=== PATIENT | female | born 1940 | race Caucasian/White ===

== ENCOUNTER → 2016-11-14 | Outpatient (CLI) | payer MEDICARE, BC ==
[~2016-11-14] MED LIST: BLOOD PRESSURE PILL; COUMADIN PO; COUMADIN1 MG PO; COUMADIN4 MG; GLUCOPHAGE500 MG PO; HYDROCODON-ACE1 EAC7; IMDUR-ER30 M1 PO; IMDUR-ER60 M2 PO; K-DUR20 ME1 DOB; KCL PO; LASIX20 MG; LASIX80 MG PO; LEVOTHYROXINE100 MCG PO; LOW DOSE ASPIRI81 M1 PO; MECLIZINE HCL25 M1 PO; METOPROLOL SUCC25 MG PO; METOPROLOL SUCC50 MG; SYNTHROID75 MCG; ZOFRAN PO
--- NOTE | ~2016-11-14 | CT71 ---
[facility]. [facility] A Service of [facility] & [facility] RADIOLOGY TEXT RESULTS PATIENT: LORRIE CALDERA LOCATION: [facility] : 38 UNIT #: [id number] AGE: [address]: LEMUEL REILLY MD SEX: F ORDER DR: [id number] [address] [address] [id number] O MR#: [id number] #: [id number] NAME: LORRIE CALDERA : 1940 SEX: F STUDY DATE/TIME: 11/14/2016 8:28 UNIT: [facility] ROOM: STUDY DESCRIPTION: CT Head Wo Contrast Attending Physician: Lemuel Reilly M.D. Referring Physician: Lemuel Reilly M.D. Ordering Physician: Lemuel Reilly M.D. Primary Care Physician: Lemuel Reilly M.D. MEDICAL IMAGING REPORT This report is preliminary unless electronic signature is present. EXAM CT head, 11/14/2016. HISTORY Ocular migraine. Migraine worsening for [address] head performed skull base through vertex without intravenous contrast. This CT exam was performed with one or more of the following radiation dose reduction techniques: automatic exposure control, adjustment of mA and/or kV according to patient size, and iterative reconstruction. COMPARISON No comparisons. FINDINGS Some images degraded by streak/motion artifact. Brainstem unremarkable. Cerebellum and cerebral hemispheres show preservation of james matter-white matter differentiation. There is an area of encephalomalacic change in the posterolateral left frontal lobe likely reflecting remote vascular insult. There is a 7 mm hypodense focus in the left putamen inferiorly which could represent dilated perivascular space or chronic lacunar infarct. There is no compelling evidence of acute cortical ischemia. There is an ill-defined 5-8 mm focus hyperdensities seen on a single image in the right parietal lobe white matter in the periventricular white matter. No mass effect. No surrounding edema. Etiology unclear. Products of hemorrhage felt unlikely, though not excluded. This may represent unusual chronic parenchymal calcification. In the absence of prior studies for comparison, further assessment with MRI is strongly recommended. No other suspicious parenchymal hyperdensities are seen. There are STS. [facility] A Service of [facility] & [facility] RADIOLOGY TEXT RESULTS PATIENT: LORRIE CALDERA LOCATION: [facility] : 38 UNIT #: [id number] AGE: [address]: LEMUEL REILLY MD SEX: F ORDER DR: typical appearing basal ganglia calcifications. The midline structures are nondisplaced. The ventricles, cisterns, and sulci show mild generalized enlargement consistent with mild generalized atrophy. No intra or extraaxial mass effect or abnormal fluid collection. There are cavernous carotid and distal vertebral arterial calcifications. The intraorbital soft tissues are unremarkable. Mucosal thickening ethmoid air cells and left maxillary sinus. No fracture. IMPRESSION 1. In the right parietal lobe periventricular white matter seen on only 1 image, there is a 5-8 mm focus of increased density. No mass effect or surrounding vasogenic edema. Etiology unclear. Given overall appearance, focus of acute hemorrhage is felt less likely, though not strictly excluded. This could be an unusual parenchymal calcification. I have no prior studies for comparison. In absence of prior studies clarifying this finding, assessment with MRI strongly recommended. Findings discussed directly with Dr. Reilly at 1300 hours 11/14/2016. 2. Area of encephalomalacic change posterior-superior left frontal lobe likely reflecting remote vascular insult. 3. Mild generalized atrophy. 4. 7 mm dilated perivascular space versus chronic lacunar infarct left putamen. 5. Extensive cavernous carotid and distal vertebral arterial calcifications. 6. Mild atrophy. 7. Mild mucosal thickening ethmoid air cells and left maxillary sinus. Dictated by... Yefri Simpson M.D. THIS IS AN ELECTRONICALLY VERIFIED REPORT Yefri Simpson M.D. at 11/15/2016 7:14 PM TRINA/annie TD: 11/14/2016 13:59 JOB #: [id number] MEDICAL IMAGING REPORT Page 1 of 1
== END | disposition home or self-care (01) ==
LOC: SCT 08:07
DX: G43.109 Migraine with aura, not intractable, without status migrainosus (principal); G93.89 Other specified disorders of brain; G31.9 Degenerative disease of nervous system, unspecified; I67.2 Cerebral atherosclerosis
CPT/HCPCS: 70450

== ENCOUNTER 2017-02-18 17:29 | Emergency (ER) | payer MEDICARE, BC ==
--- NOTE | ~2017-02-18 | EKG ---
PATIENT: LORRIE CALDERA UNIT #: [id number] Ventricular Rate: 60 BPM Atrial Rate: 71 BPM QRS Duration: 162 ms Q-T Interval: 464 ms QTC Calculation(Bezet): 464 ms Calculated R [place]: -66 degrees Calculated T [place]: 95 degrees Diagnosis Line: Electronic ventricular pacemaker Diagnosis Line: When compared with ECG of 26-JAN-2015 18:13, Diagnosis Line: Vent. rate has decreased BY 4 BPM Diagnosis Line: Confirmed by DEVIN ELY MD ([id number]) on 02/20/2017 Diagnosis Line: 7:02:34 PM INTERPRETING MD: SOLIS ASHER
--- NOTE | ~2017-02-18 | CT71 ---
[facility]. [facility] A Service of [facility] & [facility] RADIOLOGY TEXT RESULTS PATIENT: LORRIE CALDERA LOCATION: SED : 38 UNIT #: [id number] AGE: [address]: Arjun Slatre MD SEX: F ORDER DR: [id number] [address] [address] [id number] MR#: [id number] Acc #: [id number] NAME: LORRIE CALDERA : 1940 SEX: F STUDY DATE/TIME: 02/18/2017 18:54 UNIT: SED ROOM: STUDY DESCRIPTION: CT Head Wo Contrast Attending Physician: Arjun Slater M.D. Ordering Physician: Porsche Rose M.D. Primary Care Physician: Lemuel Torre M.D. MEDICAL IMAGING REPORT This report is preliminary unless electronic signature is present. EXAM CT head 02/18/2017 HISTORY Dizzy. Elevated blood pressure, started [address] head performed skull base through vertex without intravenous contrast. This CT exam was performed with one or more of the following radiation dose reduction techniques: automatic exposure control, adjustment of mA and/or kV according to patient size, and iterative reconstruction. COMPARISON STUDIES 11/14/2016. FINDINGS Brainstem unremarkable. The cerebellum and cerebral hemispheres show overall preservation james matter-white matter differentiation. There is a stable focus of hyperintensity seen on a single image in the right parietal periventricular white matter. It measures approximately 5-8 mm in diameter and is unchanged from 11/14/2016 with no mass effect or surrounding edema. This is favored to represent a small focus of calcification. There is an area of chronic encephalomalacic change in the left frontal lobe. Stable and favored to reflect remote vascular insult. There are periventricular and deep white matter tract hypodensities, most likely reflecting sequelae of chronic microvascular ischemia. 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 No acute-appearing basal ganglia abnormality. Ventricles, cisterns and sulci show mild generalized enlargement consistent with mild generalized atrophy. No intra- or extraaxial mass effect or abnormal intracranial fluid collection. Cavernous carotid and distal vertebral arterial STS. [facility] A Service of [facility] & [facility] RADIOLOGY TEXT RESULTS PATIENT: LORRIE CALDERA LOCATION: SED : 38 UNIT #: [id number] AGE: [address]: Arjun Slater MD SEX: F ORDER DR: calcifications. Given the prominence of the vertebral arterial calcifications, correlate with any clinical concern for vertebrobasilar insufficiency as cause of patient's dizziness. There is no acute bony abnormality. Mucosal thickening ethmoid air cells and maxillary sinuses. No evidence of acute sinusitis. No fracture. IMPRESSION 1. No acute abnormality is seen in the brain. No change from October 2016. 2. There is a stable 5-8 mm focus of increased density in the right parietal periventricular white matter without mass effect or surrounding edema. Seen on only 1 image and favored to be a faint parenchymal calcification. Unchanged from prior study. 3. Other chronic changes include: Mild generalized atrophy, periventricular and deep white matter tract probable sequelae of chronic microvascular ischemia, subcentimeter left putamen lacunar infarct, area of encephalomalacic change in the left frontal lobe felt to reflect prior vascular insult, extensive vascular calcification. There are prominent calcifications in the distal vertebral arteries. Given the patient's stated history of dizziness, correlate with any clinical concern for possible vertebrobasilar insufficiency. 4. Mucosal thickening ethmoid air cells and maxillary sinuses. No evidence of acute sinusitis. Dictated by... Yefri Simpson M.D. THIS IS AN ELECTRONICALLY VERIFIED REPORT Yefri Simpson M.D. at 02/19/2017 8:03 PM TRINA/mingo TD: 02/18/2017 23:22 JOB #: [id number] MEDICAL IMAGING REPORT Page 1 of 1
[~2017-02-18 17:29] MED LIST changes: -HYDROCODON-ACE1 EAC7; -LASIX80 MG PO; -MECLIZINE HCL25 M1 PO; -ZOFRAN PO
[2017-02-18] MEDS ORDERED: HYDROCODON-ACE1 EAC7 (17:36)
[2017-02-18 17:59] LABS: BASOPHIL% 0.4 % (0-2.5); EOSINOPHIL# 0.6 X10e3 (0-0.7); EOSINOPHIL% 6.5 % (0.0-7.0); HEMATOCRIT 40.9 % (35.0-45.0); HEMOGLOBIN 13.7 gm/dL (12.0-16.0); LYMPHOCYTE# 2.5 X10e3 (1.0-3.5); LYMPHOCYTE% 29.2 % (17.0-45.0); MEAN CELL VOLUME 85.3 FL (83-96); MEAN CORPUSCULAR HEMOGLOBIN 28.7 PG (28-34); MEAN CORPUSCULAR HGB CONC 33.6 g/dL (30-36); MEAN PLATELET VOLUME 8.8 FL (6.5-11.5); NEUTROPHIL# 4.6 X10e3 (1.5-7.1); NEUTROPHIL% 52.9 % (40-75); PLATELET COUNT 248 X10e3 (140-420); RED CELL DISTRIBUTION WIDTH 14.7 % (11.0-15.5); WHITE BLOOD COUNT 8.7 X10e3 (4.0-10.5)
[2017-02-18 18:09] LABS: DIFF IND NO
[2017-02-18 18:20] LABS: POC - CKMB 1.2 ng/mL (0.0-7.9); POC - MYOGLOBIN 78.8 ng/mL (0.0-169.0); POC - TROPONIN <0.05 ng/mL (<=0.05)
[2017-02-18 18:20] LABS: ALBUMIN SERUM 4.4 g/dL (3.5-5.0); ALKALINE PHOSPHATASE 68 U/L (32-92); ALT (SGPT) 16 U/L (10-40); AST (SGOT) 19 U/L (10-42); BILIRUBIN, DIRECT <0.1 mg/dL (0.0-0.2); BILIRUBIN,INDIRECT 0.5 mg/dL (0.0-0.9); BILIRUBIN,TOTAL 0.6 mg/dL (0.2-2.0); BLOOD UREA NITROGEN 22 mg/dL (9-23); BUN/CREATININE RATIO 16.92; CALCIUM SERUM 9.4 mg/dL (8.4-10.2); CARBON DIOXIDE 27 mmol/L (22-31); CHLORIDE 103 mmol/L (100-111); CREATININE SERUM 1.3 mg/dL (0.6-1.4); GLOM FILT RATE Estimated 39.5 mL/min (>60); GLUCOSE FASTING 122 mg/dL (70-110); POTASSIUM 3.8 mmol/L (3.5-5.1); PROTEIN TOTAL SERUM 8.3 g/dL (6.0-8.3); SODIUM 136 mmol/L (135-145)
[2017-02-18 20:06] LABS: URINE SOURCE CLEAN CATCH
[2017-02-18 20:08] LABS: MICRO INDICATED? YES; URINE APPEARANCE CLEAR; URINE BILIRUBIN NEG (NEG); URINE BLOOD NEG (NEG); URINE COLOR YELLOW; URINE GLUCOSE NEG (NORM); URINE KETONE NEG (NEG); URINE LEUKOCYTE ESTERASE TRACE (NEG); URINE NITRATE NEG (NEG); URINE PROTEIN NEG (NEG)
[2017-02-18 20:11] LABS: CULTURE INDICATED? NO; URINE BACTERIA NEG (NEG); URINE RBC 0-2 /[HPF] (0-2); URINE WBC 0-2 /[HPF] (0-5)
[2017-02-18 20:12] LABS: URINE SQUAMOUS EPITHELIAL CELL FEW /[HPF]; URINE TRANSITIONAL EPI CELLS FEW /[HPF]
== END 2017-02-18 20:57 | disposition home or self-care (01) ==
LOC: SED 17:29
PROVIDERS: Emergency Medicine
DX: R42 Dizziness and giddiness (principal); R11.0 Nausea; I10 Essential (primary) hypertension; Z79.82 Long term (current) use of aspirin; Z79.01 Long term (current) use of anticoagulants; Z79.899 Other long term (current) drug therapy; Z88.2 Allergy status to sulfonamides; Z88.5 Allergy status to narcotic agent; Z91.041 Radiographic dye allergy status
CPT/HCPCS: 36415; 70450; 80048; 80076; 81003; 82553; 82947; 83874; 84484; 85025; 87086; 93005; 96374; 99284; J2405

== ENCOUNTER 2017-02-25 22:35 | Emergency (ER) | payer MEDICARE, BC ==
[~2017-02-25] VITALS: Ht 147.3 cm; Wt 68.0 kg
--- NOTE | ~2017-02-25 | EKG ---
PATIENT: LORRIE CALDERA UNIT #: [id number] Ventricular Rate: 61 BPM Atrial Rate: 61 BPM P-R Interval: 138 ms QRS Duration: 172 ms Q-T Interval: 476 ms QTC Calculation(Bezet): 479 ms P [place]: 21 degrees Calculated R [place]: -70 degrees Calculated T [place]: 79 degrees Diagnosis Line: AV sequential or dual chamber electronic pacemaker Diagnosis Line: When compared with ECG of 18-FEB-2017 18:04, Diagnosis Line: No significant change was found Diagnosis Line: Confirmed by TERRY BARKER MD ([id number]) on Diagnosis Line: 02/28/2017 10:41:42 AM INTERPRETING MD: LUCERO ASHER
[~2017-02-25 22:35] MED LIST changes: +HYDROCODON-ACE1 EAC7
[2017-02-25] MEDS ORDERED: LASIX80 MG PO (22:42)
[2017-02-25] MEDS ORDERED: MECLIZINE HCL25 M1 PO (22:42)
[2017-02-25] MEDS ORDERED: ZOFRAN PO (22:42)
[2017-02-26 00:04] LABS: BASOPHIL# 0.1 X10e3 (0-0.3); BASOPHIL% 0.9 % (0-2.5); EOSINOPHIL# 0.5 X10e3 (0-0.7); EOSINOPHIL% 7.9 % (0.0-7.0); HEMATOCRIT 38.8 % (35.0-45.0); HEMOGLOBIN 13.2 gm/dL (12.0-16.0); LYMPHOCYTE# 2.3 X10e3 (1.0-3.5); LYMPHOCYTE% 32.6 % (17.0-45.0); MEAN CELL VOLUME 85.5 FL (83-96); MEAN CORPUSCULAR HEMOGLOBIN 29.1 PG (28-34); MEAN CORPUSCULAR HGB CONC 34.1 g/dL (30-36); MONOCYTE# 0.8 X10e3 (0-1.0); MONOCYTE% 12.2 % (3.0-12.0); NEUTROPHIL# 3.2 X10e3 (1.5-7.1); NEUTROPHIL% 46.4 % (40-75); PLATELET COUNT 198 X10e3 (140-420); RED BLOOD COUNT 4.54 X10e (3.90-5.30); RED CELL DISTRIBUTION WIDTH 14.5 % (11.0-15.5); WHITE BLOOD COUNT 6.9 X10e3 (4.0-10.5)
[2017-02-26 00:06] LABS: DIFF IND NO
[2017-02-26 00:17] LABS: INR 1.7; PROTHROMBIN TIME (PATIENT) 19.4 SECONDS (9.5-12.4)
[2017-02-26 00:20] LABS: POC - CKMB 1.5 ng/mL (0.0-7.9); POC - MYOGLOBIN 91.7 ng/mL (0.0-169.0); POC - TROPONIN <0.05 ng/mL (<=0.05)
[2017-02-26 00:22] LABS: ALBUMIN SERUM 3.9 g/dL (3.5-5.0); BILIRUBIN, DIRECT 0.1 mg/dL (0.0-0.2); BILIRUBIN,INDIRECT 0.4 mg/dL (0.0-0.9); BILIRUBIN,TOTAL 0.5 mg/dL (0.2-2.0); BUN/CREATININE RATIO 20.9; CALCIUM SERUM 9.5 mg/dL (8.4-10.2); CREATININE SERUM 1.1 mg/dL (0.6-1.4); GLOM FILT RATE Estimated 48.4 mL/min (>60); POTASSIUM 4.2 mmol/L (3.5-5.1); PROTEIN TOTAL SERUM 7.5 g/dL (6.0-8.3)
[2017-02-26 00:24] LABS: PARTIAL THROMBOPLASTIN TIME 35.4 SECONDS (25.6-38.1)
[2017-02-26 01:57] LABS: POC - CKMB 1.3 ng/mL (0.0-7.9); POC - MYOGLOBIN 71.5 ng/mL (0.0-169.0); POC - TROPONIN <0.05 ng/mL (<=0.05)
== END 2017-02-26 02:55 | disposition home or self-care (01) ==
LOC: SED 22:35
PROVIDERS: Emergency Medicine
DX: I10 Essential (primary) hypertension (principal); E11.9 Type 2 diabetes mellitus without complications; I48.91 Unspecified atrial fibrillation; Z88.2 Allergy status to sulfonamides; Z88.5 Allergy status to narcotic agent; Z79.82 Long term (current) use of aspirin; Z79.899 Other long term (current) drug therapy; Z79.84 Long term (current) use of oral hypoglycemic drugs
CPT/HCPCS: 36415; 80048; 80076; 82553; 83874; 84484; 85025; 85610; 85730; 93005; 99284